=== PATIENT | female | born 1950 | race Caucasian/White ===

== ENCOUNTER 2019-07-22 10:00 | Outpatient (RCR) | payer MEDICARE, OTHER, SELFPAY ==
--- NOTE | 2019-06-02 17:02 | PT.OIE ---
Current Diagnoses Hyperlipidemia, unspecified (05/27/19) Unspecified urinary incontinence (05/27/19) Past Medical History (Last Updated 07/21/18 @ 11:55 by Jimena Tristan) Cataract (Chronic 2002) Depression (Chronic 1979) Glaucoma (Chronic 2015) Herpes (Chronic 1980) Hypertension (Chronic 1998) Osteopenia (Chronic 2016) Rosacea (Chronic 1999) Tinnitus (Chronic 1992) Chicken pox (Resolved) Gastric ulcer (Resolved 1993) Measles (Resolved) Mumps (Resolved) Past Surgical History (Last Updated 07/21/18 @ 11:51 by Jimena Tristan) Anesthesia (Resolved) Status post delivery (Resolved 1980) Status post delivery (Resolved 1982) Status post exploratory laparotomy (Resolved 1962) Status post thoracotomy (Resolved 1963) Provider Visit Care Team Role Provider Type YAO Grijalva Attending Provider Non-Staff Primary Care Provider Specialty: Medical Address: [address] [place] [address], [id number] Email: Physical Therapy Initial Evaluation PT-OP-A Visit Information Start: 05/27/19 10:05 Freq: Status: Active Protocol: Document 05/27/19 10:45 [facility] (Rec: 06/02/19 17:02 [facility] [email or web address]) Out-Patient Physical Therapy Visit Information Visit Information Visit Type Initial Evaluation Visit Note 68 year old female with urinary urge incontinence Visit Start Time 10:45 Visit Stop Time 11:30 Total Visit Minutes 45 Visit Number 1 Evaluation Information Evaluation Date 05/27/19 PT-OP-B Current Condition Start: 05/27/19 10:05 Freq: Status: Active Protocol: Document 05/27/19 10:05 [facility] (Rec: 05/27/19 10:19 [facility] [id number]) Current Condition History of Current Condition Onset Date worsening in the past 10 years Current Complaints urinary urge incontinence History of Current Condition Urge incontinence symptoms for a while now. She describes a bubble sensation. The sensation that she needs to go if she puts it off 30 min she will notice leakage. She does go to the bathroom frequently to prevent leakage. Has triggers such as coffee cause leakage. She doesn't wear a pad because usually it is predictable. Hx of 2 C-sections 1980, 1982 , ruptured appendix at 12 years old, posterior diaphgramic abcess at age 12, hx of frequent UTI's in her 20 's and was diagnosed with a cystecele at that time, she does yoga every day, walks for exercise. Uses estrace vaginal cream 3 times a week. She has been using it for approximately 10 years and uses it to 2-3 times per week. Hx of IBS with some c/o constipation at times. Other past medical history includes osteopenia and type II diabetes. Treatment Goals Patient/Caregiver Goals Goals include reducing symptoms of urinary incontinence Current Functional Impairments (Reported) Functional Limitations- Recreation/ pt reports she will need to Hobbies use the bathroom frequently especially first thing in the morning before she is able to leave the house. PT-OP-I Pelvic Floor Start: 05/27/19 10:05 Freq: Status: Active Protocol: Document 05/27/19 10:45 [facility] (Rec: 06/02/19 16:58 [facility] [email or web address]) Pelvic Floor Assessment Urine Pelvic Floor Surgery No Urinary Symptoms Urge Sensation Leakage Size Medium Leakage Cause Urge Other Leakage Causes urgency usually occurs in the am Leaks Per Day varies Nocturia 1 xm Pelvic Clock Pelvic Clock 12-3 Atrophy Pelvic Clock 3-6 Atrophy Pelvic Clock 6-9 Guarding Tightness Contraction Ability Voluntary Contraction Weak Voluntary Relaxation Weak Manual Muscle Testing Left 2 Manual Muscle Testing Right 2 Manual Muscle Testing Anterior 2 Manual Muscle Testing Posterior 2 Muscle Endurance (Seconds) 5 PT-OP-Q Treatments Start: 05/27/19 10:05 Freq: Status: Active Protocol: Document 05/27/19 10:45 [facility] (Rec: 06/02/19 16:59 [facility] [email or web address]) Therapeutic Exercises Supine Exercises 1 Supine Exercise Name pelvic floor long holds Side bilateral Reps/Minutes 10 second hold and 10 second release Self-Care/Home Management Treatment Education Patient Education Home Exercise Program Other Education urge deference technique training PT-OP-T Assessment and Plan Start: 05/27/19 10:05 Freq: Status: Active Protocol: Document 05/27/19 10:45 [facility] (Rec: 06/02/19 13:42 [facility] [email or web address]) Physical Therapy Assessment Rehab Potential Rehabilitation Potential Excellent Evaluation Complexity Number of Personal Factors/Comorbidities 0 Number of Body Systems Impaired 1-2 Clinical Presentation at Evaluation Stable Impairments Impairments Activity Tolerance Functional Activities Soft Tissue Mobility Strength Other Impairments urinary urge incontinence Goals Four Impairment Decreased endurance of the levator ani at < 5 second hold time Short Term Goal (STG) Deirdre demonstrates improved endurance of the levator ani and is able to sustain a contraction x 10 second hold time in supine STG Duration 4 weeks Proposal Director Goal (LTG) Deirdre is able to sustain a pelvic floor contraction x 10 seconds in a standing position LTG Duration 8 weeks Three Impairment Guarding of the left lateral wall of the iliococcygeus Short Term Goal (STG) With manual therapy techniques and pelvic stretches Deirdre is able to fully relax her pelvic floor assisting her with fully emptying her bladder STG Duration 4-5 weeks Two Impairment Urinary urge incontinence, frequent voiding due to urgency Short Term Goal (STG) Deirdre is instructed in the urge deference technique to retrain the bladder and eliminate frequent voiding prior to her bladder being fully full. STG Duration 4 weeks Proposal Director Goal (LTG) Deirdre reports decreased c/o urinary urgency and is no longer experiencing sudden loss of urine LTG Duration 8 weeks One Impairment Pelvic floor weakness MMT of 2 /5 for all parts of the pelvic clock Proposal Director Goal (LTG) With pelvic floor strengthening Deirdre is able to improve strength of her pelvic floor to 3/5 or better LTG Duration 8 weeks Assessment Summary Assessment Deirdre presents to physical therapy today with signs and symptoms of urinary urge incontinence. She has been experiencing incontinence symptoms for a while now. She describes she feels a bubble sensation. She will experience the sensation that she needs to go and if she puts it off 30 min she will notice leakage. She does go to the bathroom frequently to prevent leakage. Bladder irritants such as coffee cause leakage. Deirdre has a Hx of 2 C-sections 1980, 1982 , ruptured appendix at 12 years old, posterior diaphragmatic abcess at age 12, hx of frequent UTI's in her 20's and was diagnosed with a cystocele at that time, she does yoga every day, walks for exercise. Uses estrace vaginal cream 3 times a week. She has been using it for approximately 10 years and uses it to 2-3 times per week. Hx of IBS with some c/o constipation at times. Other past medical history includes osteopenia and type II diabetes. With examination today there is weakness in all parts of the levator ani 2/5 MMT. She lacks endurance to sustain a contraction > 5 seconds. There is guarding of the left lateral wall of the levator ani and difficulty fully relaxing in this area. Treatment will focus on bladder retraining and urge deference technique, pelvic stretches to relax the lateral rashid of the levator ani, pelvic floor strengthening and NMRE with EMG biofeedback, manual therapy may also be used to help relax the left lateral wall of the levator ani. Physical Therapy Plan Frequency and Duration Frequency of Treatment 1x/Week Duration of Treatment 8 Plan of Care Start Date 05/27/19 Plan of Care End Date 07/22/19 Therapeutic Interventions Therapeutic Interventions Home Exercise Program Manual Therapy Neuromuscular Re-education Patient/Caregiver Education Self-Care/Home Management Soft Tissue Mobilization Therapeutic Exercises Modalities Biofeedback Electric Stimulation
--- NOTE | 2019-06-02 17:05 | PT.OPPOC ---
Current Diagnoses Hyperlipidemia, unspecified (05/27/19) Unspecified urinary incontinence (05/27/19) Provider Visit Care Team Role Provider Type YAO Grijalva Attending Provider Non-Staff Primary Care Provider Specialty: Medical Address: [address] [place] [address], [id number] Email: Plan Of Care PT-OP-T Assessment and Plan Start: 05/27/19 10:05 Freq: Status: Active Protocol: Document 05/27/19 10:45 [facility] (Rec: 06/02/19 13:42 [facility] [email or web address]) Physical Therapy Assessment Rehab Potential Rehabilitation Potential Excellent Evaluation Complexity Number of Personal Factors/Comorbidities 0 Number of Body Systems Impaired 1-2 Clinical Presentation at Evaluation Stable Impairments Impairments Activity Tolerance Functional Activities Soft Tissue Mobility Strength Other Impairments urinary urge incontinence Goals Four Impairment Decreased endurance of the levator ani at < 5 second hold time Short Term Goal (STG) Deirdre demonstrates improved endurance of the levator ani and is able to sustain a contraction x 10 second hold time in supine STG Duration 4 weeks Collar Pointer Goal (LTG) Deirdre is able to sustain a pelvic floor contraction x 10 seconds in a standing position LTG Duration 8 weeks Three Impairment Guarding of the left lateral wall of the iliococcygeus Short Term Goal (STG) With manual therapy techniques and pelvic stretches Deirdre is able to fully relax her pelvic floor assisting her with fully emptying her bladder STG Duration 4-5 weeks Two Impairment Urinary urge incontinence, frequent voiding due to urgency Short Term Goal (STG) Deirdre is instructed in the urge deference technique to retrain the bladder and eliminate frequent voiding prior to her bladder being fully full. STG Duration 4 weeks Collar Pointer Goal (LTG) Deirdre reports decreased c/o urinary urgency and is no longer experiencing sudden loss of urine LTG Duration 8 weeks One Impairment Pelvic floor weakness MMT of 2 /5 for all parts of the pelvic clock Collar Pointer Goal (LTG) With pelvic floor strengthening Deirdre is able to improve strength of her pelvic floor to 3/5 or better LTG Duration 8 weeks Assessment Summary Assessment Deirdre presents to physical therapy today with signs and symptoms of urinary urge incontinence. She has been experiencing incontinence symptoms for a while now. She describes she feels a bubble sensation. She will experience the sensation that she needs to go and if she puts it off 30 min she will notice leakage. She does go to the bathroom frequently to prevent leakage. Bladder irritants such as coffee cause leakage. Deirdre has a Hx of 2 C-sections 1980, 1982 , ruptured appendix at 12 years old, posterior diaphragmatic abcess at age 12, hx of frequent UTI's in her 20's and was diagnosed with a cystocele at that time, she does yoga every day, walks for exercise. Uses estrace vaginal cream 3 times a week. She has been using it for approximately 10 years and uses it to 2-3 times per week. Hx of IBS with some c/o constipation at times. Other past medical history includes osteopenia and type II diabetes. With examination today there is weakness in all parts of the levator ani 2/5 MMT. She lacks endurance to sustain a contraction > 5 seconds. There is guarding of the left lateral wall of the levator ani and difficulty fully relaxing in this area. Treatment will focus on bladder retraining and urge deference technique, pelvic stretches to relax the lateral rashid of the levator ani, pelvic floor strengthening and NMRE with EMG biofeedback, manual therapy may also be used to help relax the left lateral wall of the levator ani. Physical Therapy Plan Frequency and Duration Frequency of Treatment 1x/Week Duration of Treatment 8 Plan of Care Start Date 05/27/19 Plan of Care End Date 07/22/19 Therapeutic Interventions Therapeutic Interventions Home Exercise Program Manual Therapy Neuromuscular Re-education Patient/Caregiver Education Self-Care/Home Management Soft Tissue Mobilization Therapeutic Exercises Modalities Biofeedback Electric Stimulation Plan of Care Dates Plan of Care Start Date 05/27/19 Plan of Care End Date 07/22/19 Please Sign and Return: I have reviewed this Plan of Care and certify that the skilled therapy services above are required to meet the patient?s needs. Physician Signature Date Printed Name and Credentials Clinical Instructor Signature Printed Name and Credentials ra
--- NOTE | 2019-06-03 12:20 | PT.OTN ---
Current Diagnoses Hyperlipidemia, unspecified (06/03/19) Unspecified urinary incontinence (06/03/19) Physical Therapy Treatment Note PT-OP-A Visit Information Start: 05/27/19 10:05 Freq: Status: Active Protocol: Document 06/03/19 09:00 [facility] (Rec: 06/03/19 12:19 [facility] [email or web address]) Out-Patient Physical Therapy Visit Information Visit Information Visit Type Treatment Note Visit Start Time 09:00 Visit Stop Time 09:45 Total Visit Minutes 45 Visit Number 2 PT-OP-B Current Condition Start: 05/27/19 10:05 Freq: Status: Active Protocol: Document 05/27/19 10:05 [facility] (Rec: 05/27/19 10:19 [facility] [id number]) Current Condition History of Current Condition Onset Date worsening in the past 10 years Current Complaints urinary urge incontinence History of Current Condition Urge incontinence symptoms for a while now. She describes a bubble sensation. The sensation that she needs to go if she puts it off 30 min she will notice leakage. She does go to the bathroom frequently to prevent leakage. Has triggers such as coffee cause leakage. She doesn't wear a pad because usually it is predictable. Hx of 2 C-sections 1980, 1982 , ruptured appendix at 12 years old, posterior diaphgramic abcess at age 12, hx of frequent UTI's in her 20 's and was diagnosed with a cystecele at that time, she does yoga every day, walks for exercise. Uses estrace vaginal cream 3 times a week. She has been using it for approximately 10 years and uses it to 2-3 times per week. Hx of IBS with some c/o constipation at times. Other past medical history includes osteopenia and type II diabetes. Treatment Goals Patient/Caregiver Goals Goals include reducing symptoms of urinary incontinece Current Functional Impairments (Reported) Functional Limitations- Recreation/ pt reports she will need to Hobbies use the bathroom frequently especially first thing in the morning before she is able to leave the house. PT-OP-C Subjective Start: 05/27/19 10:05 Freq: Status: Active Protocol: Document 06/03/19 09:00 [facility] (Rec: 06/03/19 12:19 [facility] [email or web address]) OP-PT Subjective Patient Comments Patient Comments Deirdre reports she is trying to work on her exercises at home when she can. PT-OP-I Pelvic Floor Start: 05/27/19 10:05 Freq: Status: Active Protocol: Document 05/27/19 10:45 [facility] (Rec: 06/02/19 16:58 [facility] [email or web address]) Pelvic Floor Assessment Urine Pelvic Floor Surgery No Urinary Symptoms Urge Sensation Leakage Size Medium Leakage Cause Urge Other Leakage Causes urgency usually occurs in the am Leaks Per Day varies Nocturia 1 xm Pelvic Clock Pelvic Clock 12-3 Atrophy Pelvic Clock 3-6 Atrophy Pelvic Clock 6-9 Guarding Tightness Contraction Ability Voluntary Contraction Weak Voluntary Relaxation Weak Manual Muscle Testing Left 2 Manual Muscle Testing Right 2 Manual Muscle Testing Anterior 2 Manual Muscle Testing Posterior 2 Muscle Endurance (Seconds) 5 PT-OP-Q Treatments Start: 05/27/19 10:05 Freq: Status: Active Protocol: Document 06/03/19 09:00 [facility] (Rec: 06/03/19 12:19 [facility] [email or web address]) Therapeutic Exercises Supine Exercises 2 Supine Exercise Name pelvic floor quick flicks Reps/Minutes x 10 reps 1 Supine Exercise Name pelvic floor long holds Side bilateral Reps/Minutes 10 second hold and 10 second release Other Exercises 3 Other Exercise Name cobra stretch to relax the bladder 2 Other Exercise Name cat cow with abdominal relaxation on the inhale 1 Other Exercise Name quadruped TA facilitation and relaxation Reps/Minutes x 10 reps Comments worked on relaxed awareness of the upper abdominal wall Neuro Re-Education Treatment Other Activities 2 Details Neuromuscular re-education of pelvic floor facilitation and relaxation Comments EMG biofeedback was used as a tool for neuro re-education of the pelvic floor muscles and for relaxation of the left lateral wall of the obturator internus 1 Details pelvic floor relaxation with diaphragmatic breathing Reps/Duration in hooklying PT-OP-T Assessment and Plan Start: 05/27/19 10:05 Freq: Status: Active Protocol: Document 06/03/19 09:00 [facility] (Rec: 06/03/19 12:19 [facility] [email or web address]) Physical Therapy Assessment Assessment Summary Assessment elevated resting tone at 2.0 uv this didn't worsen with contractions and deirdre could feel some tightnening in the region of the obturator internus on the left. She could feel more tightness on the left than the right. Average contraction today for long holds was 9 uv. I added in quick cotnractions and TA facilitation with breath work in quadruped Physical Therapy Plan Frequency and Duration Frequency of Treatment 1x/Week Duration of Treatment 8 Plan of Care Start Date 05/27/19 Plan of Care End Date 07/22/19 Therapeutic Interventions Therapeutic Interventions Home Exercise Program Manual Therapy Neuromuscular Re-education Patient/Caregiver Education Self-Care/Home Management Soft Tissue Mobilization Therapeutic Exercises Modalities Biofeedback Electric Stimulation Next Visit Focus/Plan Next Note Type Treatment Note Next Visit Plan recheck pelvic floor resting tone and progress strengthening of the pelvic floor. Add in templates for eccentric control and coordination
--- NOTE | 2019-06-24 14:39 | PT.OTN ---
Current Diagnoses Hyperlipidemia, unspecified (06/24/19) Unspecified urinary incontinence (06/24/19) Physical Therapy Treatment Note PT-OP-A Visit Information Start: 05/27/19 10:05 Freq: Status: Active Protocol: Document 06/24/19 14:27 [facility] (Rec: 06/24/19 14:39 [facility] [email or web address]) Out-Patient Physical Therapy Visit Information Visit Information Visit Type Treatment Note Visit Start Time 09:00 Visit Stop Time 09:45 Total Visit Minutes 45 Visit Number 3 PT-OP-B Current Condition Start: 05/27/19 10:05 Freq: Status: Active Protocol: Document 05/27/19 10:05 [facility] (Rec: 05/27/19 10:19 [facility] [id number]) Current Condition History of Current Condition Onset Date worsening in the past 10 years Current Complaints urinary urge incontinence History of Current Condition Urge incontinence symptoms for a while now. She describes a bubble sensation. The sensation that she needs to go if she puts it off 30 min she will notice leakage. She does go to the bathroom frequently to prevent leakage. Has triggers such as coffee cause leakage. She doesn't wear a pad because usually it is predictable. Hx of 2 C-sections 1980, 1982 , ruptured appendix at 12 years old, posterior diaphgramic abcess at age 12, hx of frequent UTI's in her 20 's and was diagnosed with a cystecele at that time, she does yoga every day, walks for exercise. Uses estrace vaginal cream 3 times a week. She has been using it for approximately 10 years and uses it to 2-3 times per week. Hx of IBS with some c/o constipation at times. Other past medical history includes osteopenia and type II diabetes. Treatment Goals Patient/Caregiver Goals Goals include reducing symptoms of urinary incontinece Current Functional Impairments (Reported) Functional Limitations- Recreation/ pt reports she will need to Hobbies use the bathroom frequently especially first thing in the morning before she is able to leave the house. PT-OP-C Subjective Start: 05/27/19 10:05 Freq: Status: Active Protocol: Document 06/24/19 14:27 [facility] (Rec: 06/24/19 14:39 [facility] [email or web address]) OP-PT Subjective Patient Comments Patient Comments Deirdre reports leakage is decreasing so she feels the exercises are working. She is getting them in about 1 time per day. The exercises on her hands and knees bother her wrists so she hasn't been doing those. PT-OP-I Pelvic Floor Start: 05/27/19 10:05 Freq: Status: Active Protocol: Document 05/27/19 10:45 [facility] (Rec: 06/02/19 16:58 [facility] [email or web address]) Pelvic Floor Assessment Urine Pelvic Floor Surgery No Urinary Symptoms Urge Sensation Leakage Size Medium Leakage Cause Urge Other Leakage Causes urgency usually occurs in the am Leaks Per Day varies Nocturia 1 xm Pelvic Clock Pelvic Clock 12-3 Atrophy Pelvic Clock 3-6 Atrophy Pelvic Clock 6-9 Guarding Tightness Contraction Ability Voluntary Contraction Weak Voluntary Relaxation Weak Manual Muscle Testing Left 2 Manual Muscle Testing Right 2 Manual Muscle Testing Anterior 2 Manual Muscle Testing Posterior 2 Muscle Endurance (Seconds) 5 PT-OP-Q Treatments Start: 05/27/19 10:05 Freq: Status: Active Protocol: Document 06/24/19 14:27 [facility] (Rec: 06/24/19 14:39 [facility] [email or web address]) Therapeutic Exercises Supine Exercises 3 Supine Exercise Name templates for eccentric control and coordination 2 Supine Exercise Name pelvic floor quick flicks Reps/Minutes x 10 reps 1 Supine Exercise Name pelvic floor long holds Side bilateral Reps/Minutes 10 second hold and 10 second release Manual Therapy Treatment Soft Tissue Mobilization 1 Body Location manual check of the obturator internus, release of the inferior rectal fasc Comments tightness in the coccygeus and inferior rectal fascia, obturator was cleared Neuro Re-Education Treatment Other Activities 3 Details NMES was used to help facilitate the anterior pelvic floor Comments Deirdre reports she could feel more of the anterior portion of the pelvic floor following the stimulation PT-OP-T Assessment and Plan Start: 05/27/19 10:05 Freq: Status: Active Protocol: Document 06/24/19 14:27 [facility] (Rec: 06/24/19 14:39 [facility] [email or web address]) Physical Therapy Assessment Assessment Summary Assessment Good progress with improved strength of the pelvic floor and increased average to 11 uv on EMG biofeedback. Added in NMES to help Deirdre facilitate the anterior pelvic floor and added in manual release externally over the left ischial fascia Physical Therapy Plan Frequency and Duration Frequency of Treatment 1x/Week Duration of Treatment 8 Plan of Care Start Date 05/27/19 Plan of Care End Date 07/22/19 Next Visit Focus/Plan Next Note Type Treatment Note Next Visit Plan recheck pelvic floor strength, go through stretches of happy baby and dorene pose to open up the posterior lateral rashid of the levator ani. Trial of NMES again
--- NOTE | 2019-07-27 09:37 | PT.OTN ---
Current Diagnoses Hyperlipidemia, unspecified (07/22/19) Unspecified urinary incontinence (07/22/19) Physical Therapy Treatment Note PT-OP-A Visit Information Start: 05/27/19 10:05 Freq: Status: Active Protocol: Document 07/22/19 10:00 ON LICENSE OF [facility] (Rec: 07/27/19 09:33 ON LICENSE OF [facility] [email or web address]) Out-Patient Physical Therapy Visit Information Visit Information Visit Type Treatment Note Visit Start Time 10:00 Visit Stop Time 10:45 Total Visit Minutes 45 Visit Number 4 Evaluation Information Evaluation Date 05/27/19 PT-OP-B Current Condition Start: 05/27/19 10:05 Freq: Status: Active Protocol: Document 05/27/19 10:05 ON LICENSE OF [facility] (Rec: 05/27/19 10:19 ON LICENSE OF [facility] [id number]) Current Condition History of Current Condition Onset Date worsening in the past 10 years Current Complaints urinary urge incontinence History of Current Condition Urge incontinence symptoms for a while now. She describes a bubble sensation. The sensation that she needs to go if she puts it off 30 min she will notice leakage. She does go to the bathroom frequently to prevent leakage. Has triggers such as coffee cause leakage. She doesn't wear a pad because usually it is predictable. Hx of 2 C-sections 1980, 1982 , ruptured appendix at 12 years old, posterior diaphgramic abcess at age 12, hx of frequent UTI's in her 20 's and was diagnosed with a cystecele at that time, she does yoga every day, walks for exercise. Uses estrace vaginal cream 3 times a week. She has been using it for approximately 10 years and uses it to 2-3 times per week. Hx of IBS with some c/o constipation at times. Other past medical history includes osteopenia and type II diabetes. Treatment Goals Patient/Caregiver Goals Goals include reducing symptoms of urinary incontinece Current Functional Impairments (Reported) Functional Limitations- Recreation/ pt reports she will need to Hobbies use the bathroom frequently especially first thing in the morning before she is able to leave the house. PT-OP-C Subjective Start: 05/27/19 10:05 Freq: Status: Active Protocol: Document 07/22/19 10:00 [facility] (Rec: 07/27/19 09:33 ON LICENSE OF [facility] [email or web address]) OP-PT Subjective Patient Comments Patient Comments Deirdre reports her symptoms are much improved and she hasn't had any recent leakage. She can go longer now prior to voiding. She is not experiencing the issue of urgency unless she has had bladder irritants PT-OP-I Pelvic Floor Start: 05/27/19 10:05 Freq: Status: Active Protocol: Document 05/27/19 10:45 [facility] (Rec: 06/02/19 16:58 [facility] [email or web address]) Pelvic Floor Assessment Urine Pelvic Floor Surgery No Urinary Symptoms Urge Sensation Leakage Size Medium Leakage Cause Urge Other Leakage Causes urgency usually occurs in the am Leaks Per Day varies Nocturia 1 xm Pelvic Clock Pelvic Clock 12-3 Atrophy Pelvic Clock 3-6 Atrophy Pelvic Clock 6-9 Guarding,Tightness Contraction Ability Voluntary Contraction Weak Voluntary Relaxation Weak Manual Muscle Testing Left 2 Manual Muscle Testing Right 2 Manual Muscle Testing Anterior 2 Manual Muscle Testing Posterior 2 Muscle Endurance (Seconds) 5 PT-OP-Q Treatments Start: 05/27/19 10:05 Freq: Status: Active Protocol: Document 07/22/19 10:00 [facility] (Rec: 07/27/19 09:33 [facility] [email or web address]) Therapeutic Exercises Supine Exercises 3 Supine Exercise Name templates for eccentric control and coordination 2 Supine Exercise Name pelvic floor quick flicks Reps/Minutes x 10 reps 1 Supine Exercise Name pelvic floor long holds Side bilateral Reps/Minutes 10 second hold and 10 second release Sidelying Exercises 1 Sidelying Exercise Name sidelying clam shells Reps/Minutes 2 x 10 reps Manual Therapy Treatment Manual Techniques 1 Type manual reassessment of pelvic floor strength Comments Deirdre has improved MMT by 1 muscle grade and is 3/5 MMT now. There is a small amount of guarding on the left side but this is minimal now. PT-OP-T Assessment and Plan Start: 05/27/19 10:05 Freq: Status: Active Protocol: Document 07/22/19 10:00 [facility] (Rec: 07/27/19 09:37 [facility] [email or web address]) Physical Therapy Assessment Goals Four Impairment Decreased endurnace of the levator ani at < 5 second hold time Short Term Goal (STG) Deirdre demonstrates improved endurance of the levator ani and is able to sustain a contraction x 10 second hold time in supine STG Duration 4 weeks 07/22/19 GOAL MET Usp Goal (LTG) Deirdre is able to sustain a pelvic floor contraction x 10 seconds in a standing position Deirdre will begin working on standing pelvic floor contractions at home LTG Duration 8 weeks Three Impairment Guarding of the left lateral wall of the iliococcygeus Short Term Goal (STG) With manual therapy techniques and pelvic stretches Deirdre is able to fully relax her pelvic floor assisting her with fully emptying her bladder 07/22/19 Much improved STG Duration 4-5 weeks Two Impairment Urinary urge incontinence, frequent voiding due to urgency Short Term Goal (STG) Deirdre is instructed in the urge deference technique to retrain the bladder and eliminate frequent voiding prior to her bladder being fully full. GOAL MET STG Duration 4 weeks Courtroom Deputy Goal (LTG) Deirdre reports decreased c/o urinary urgency and is no longer experiencing sudden loss of urine GOAL MET LTG Duration 8 weeks One Impairment Pelvic floor weakness MMT of 2 /5 for all parts of the pelvic clock Courtroom Deputy Goal (LTG) With pelvic floor strengthening Deirdre is able to improve strength of her pelvic floor to 3/5 or better GOAL MET LTG Duration 8 weeks Progress Towards Goals Progress Towards Goals Progressing Toward Goals Progress Comments great overall progress, Deirdre will continue with her exercises independently and begin to increse her standing pelvic floor endurance Assessment Summary Assessment Deirdre has been seen for a total of 4 visits in PT. She has made great overall progress with decreasing symptoms of urinary leakage and has improved her pelvic floor strength. She feels independent with her home program at this time and will be discharged from PT Physical Therapy Plan Discharge Physical Therapy Discharge Reasons Goals Met
== END 2019-08-14 12:25 ==
LOC: PHYS 10:00
PROVIDERS: PCP Nurse Practitioner Family; Visit Provider Nurse Practitioner Family
DX: E78.5 Hyperlipidemia, unspecified (principal); R32 Unspecified urinary incontinence
CPT/HCPCS: 97110; 97112; 97140; 97161; 97535